=== PATIENT | male | born 1990 | race Caucasian/White ===

== ENCOUNTER 2017-05-07 10:33 | Observation (INO) | payer MEDICAID, OTHER ==
[2017-05-07] MEDS ORDERED: NALOXONE 0.4 MG/ML 1 ML VIAL IV PRN (13:34)
[2017-05-07] MEDS ORDERED: TEMAZEPAM 15 MG CAP PO PRN (13:35)
[2017-05-07] MEDS ORDERED: ALPRAZolam 0.25 MG TAB PO PRN (13:35)
[2017-05-07] MEDS ORDERED: HYDROmorphone 1 MG/ML 1 ML SYRINGE IVP PRN (13:35)
[2017-05-07] MEDS ORDERED: PANTOPRAZOLE 40 MG/10 ML VIAL IV SCH (13:45)
[2017-05-07 14:21] LABS: Basophils % (A) 0 %; CH 30.7; Eosinophils # (A) 0.1 k/uL (0-0.7); Eosinophils % (A) 1 %; HCT 44.3 % (39.0-53.0); HDW 2.13; HGB 14.3 gm/dL (13.0-17.5); Luc # (Auto) 0.08; Luc % (Auto) 1; Lymphocytes # (A) 0.8 k/uL (1.0-4.8); Lymphocytes % (A) 9 %; MCH 30.9 pg (25.0-35.0); MCHC 32.2 g/dL (31.0-37.0); MCV 96.1 fL (80.0-100.0); Mean Platelet Volume 6.8; Monocytes # (A) 0.3 k/uL (0-1.0); Monocytes % (A) 4 %; Neutrophils # (A) 7.2 k/uL (1.3-7.7); Neutrophils % (A) 86 %; RBC 4.61 m/uL (4.30-5.90); WBC 8.5 k/uL (3.8-10.6)
[2017-05-07 14:29] LABS: ALT 29 U/L (21-72); AST 25 U/L (17-59); Alkaline Phosphatase 70 U/L (38-126); Anion Gap 11 mmol/L; Blood Urea Nitrogen 6 mg/dL (9-20); Calcium 8.9 mg/dL (8.4-10.2); Carbon Dioxide 24 mmol/L (22-30); Chloride 105 mmol/L (98-107); Glucose 87 mg/dL (74-99); Non-African American GFR(MDRD) >60 (>60 ml/min/1.73 sqM); Potassium 4.1 mmol/L (3.5-5.1); Sodium 140 mmol/L (137-145); Total Bilirubin 1.3 mg/dL (0.2-1.3)
[2017-05-07] MEDS ORDERED: LORazepam 2 MG/ML INJ IV PRN (14:33)
[2017-05-07 14:38] LABS: Appearance,Urine Clear (Clear); Bilirubin,Urine Negative (Negative); Glucose,Urine (UA) Negative (Negative); Ketones,Urine 3+ (Negative); Leukocyte Esterase,Urine Negative (Negative); Nitrite,Urine Negative (Negative); Protein,Urine Negative (Negative); UA Billing (MACRO vs. MICRO) CHEM; Urobilinogen,Urine <2.0 mg/dL (<2.0)
[2017-05-07] MEDS: SODIUM CHLORIDE 0.9% 1,000 ML IV SCH (15:34)
--- NOTE | 2017-05-07 18:36 | P.GSCN ---
History of Present Illness Consult date: 05/07/17 Reason for Consult: Abdominal pain Requesting physician: Berto Blackburn History of present illness: The patient is a 27-year-old gentleman with history of irritable bowel syndrome who had a colonoscopy last 24 hours. He presented to the [place] [facility] where he had bilateral lower abdominal pain. CT of the abdomen and pelvis demonstrated no free air. There is no fluid along the spleen. He did have some fluid along the pelvis. Since transfer to [facility], his abdominal pain is resolved. General surgery has been counseled regarding his abnormal computed tomography scan findings. Review of Systems CONSTITUTIONAL: Denies any fever or chills. HEENT: Denies any trouble with vision, hearing or nosebleeds. No difficulty swallowing. LYMPHATIC: The patient denies any lumps and bumps around the neck. ENDOCRINE: Denies any thyroid disorders. Denies any blood sugar glucose intolerance. RESPIRATORY: Denies pneumonia. Has asthma. CARDIOVASCULAR: Denies any chest pain, palpitations, or recent heart attacks. GASTROINTESTINAL: Irritable bowel syndrome. History of gastroesophageal reflux disease. GENITOURINARY: Denies any blood in urine or increased urinary frequency. MUSCULOSKELETAL: Has back pain, stiffness, joint arthritis. NEUROLOGIC: Denies any numbness or tingling along the distal extremities. No seizure disorders or headaches. PSYCHIATRIC: Has depression. No suidical ideation. HEMATOLOGIC: Denies any abnormal bleeding or bruising. BREASTS: Denies any breast lumps, pain or nipple discharge. Past Medical History Past Medical History: Asthma, Musculoskeletal Disorder Additional Past Medical History / Comment(s): Hx. of asthma, Previous pelvic fracture with ongoing pelvic pain and low back pain that radiates down his right leg, heart murmur, IBS History of Any Multi-Drug Resistant Organisms: None Reported Additional Past Surgical History / Comment(s): Cosmetic surgery to remove a birthmark next to the right eye. Past Anesthesia/Blood Transfusion Reactions: No Reported Reaction Past Psychological History: Anxiety, Bipolar, Depression, PTSD Additional Psychological History / Comment(s): Dr. Otto Psychiatrist at [facility] Smoking Status: Never smoker Past Alcohol Use History: Occasional Additional Past Alcohol Use History / Comment(s): Pt. only 2 beers occasionally. Past Drug Use History: Marijuana Additional Drug Use History / Comment(s): Used MJ as a teenager. - Past Family History Mother Family Medical History: GI Bleed, Neurologic Disorder Additional Family Medical History / Comment(s): Heart valve replacement; MS, Acute GI bleed Brother(s) Family Medical History: Diabetes Mellitus, Musculoskeletal Disorder Additional Family Medical History / Comment(s): Scoliosis, Gout, DM onset at 22 y.o. Medications and Allergies Home Medications Medication Instructions Recorded Confirmed Type FLUoxetine HCL [PROzac] 20 mg PO DAILY 05/07/17 05/07/17 History Omeprazole 20 mg PO DAILY 05/07/17 05/07/17 History Allergies Allergy/AdvReac Type Severity Reaction Status Date / Time acetaminophen AdvReac Abdominal Verified 05/07/17 14:09 [From Darvocet-N] Pain propoxyphene AdvReac Abdominal Verified 05/07/17 14:09 [From Darvocet-N] Pain Surgical - Exam Vital Signs Temp Pulse Resp BP Pulse Ox 98.5 F 88 16 123/58 99 05/07/17 13:15 05/07/17 13:15 05/07/17 13:15 05/07/17 13:15 05/07/17 13:15 GENERAL: Well developed and in no acute distress. Pleasant. HEENT: No sclera icterus. Extraocular movements grossly intact. Moist buccal mucosa. Head is atraumatic, normocephalic. Hears conversational speech. No nasal drainage. NECK: Supple without lymphadenopathy. No JV distention. CHEST: Non-labored respirations and equal bilateral excursions. CARDIOVASCULAR: Regular rate and rhythm. Palpable 2+ radial pulses. ABDOMEN: Soft. Nondistended. No peritonitis. Minimal bilateral abdominal wall tenderness. MUSCULOSKELETAL: No clubbing, cyanosis or edema. NEUROLOGIC: No focal or lateralizing signs. PSYCH: Appropriate affect. Alert and oriented to person, place and time. SKIN: Good skin turgor. Well perfused. Results - Labs 05/07/17 14:13 05/07/17 14:13 Abnormal Lab Results - Last 24 Hours (Table) 05/07/17 05/07/17 05/07/17 Range/Units 14:13 14:13 14:30 Lymphocytes # 0.8 L (1.0-4.8) k/uL BUN 6 L (9-20) mg/dL Urine Ketones 3+ H (Negative) Diabetes panel 05/07/17 Range/Units 14:13 Sodium 140 (137-145) mmol/L Potassium 4.1 (3.5-5.1) mmol/L Chloride 105 (98-107) mmol/L Carbon Dioxide 24 (22-30) mmol/L BUN 6 L (9-20) mg/dL Creatinine 0.77 (0.66-1.25) mg/dL Glucose 87 (74-99) mg/dL Calcium 8.9 (8.4-10.2) mg/dL AST 25 (17-59) U/L ALT 29 (21-72) U/L Alkaline Phosphatase 70 (38-126) U/L Total Protein 7.0 (6.3-8.2) g/dL Albumin 4.2 (3.5-5.0) g/dL Calcium panel 05/07/17 Range/Units 14:13 Calcium 8.9 (8.4-10.2) mg/dL Albumin 4.2 (3.5-5.0) g/dL Pituitary panel 05/07/17 Range/Units 14:13 Sodium 140 (137-145) mmol/L Potassium 4.1 (3.5-5.1) mmol/L Chloride 105 (98-107) mmol/L Carbon Dioxide 24 (22-30) mmol/L BUN 6 L (9-20) mg/dL Creatinine 0.77 (0.66-1.25) mg/dL Glucose 87 (74-99) mg/dL Calcium 8.9 (8.4-10.2) mg/dL Adrenal panel 05/07/17 Range/Units 14:13 Sodium 140 (137-145) mmol/L Potassium 4.1 (3.5-5.1) mmol/L Chloride 105 (98-107) mmol/L Carbon Dioxide 24 (22-30) mmol/L BUN 6 L (9-20) mg/dL Creatinine 0.77 (0.66-1.25) mg/dL Glucose 87 (74-99) mg/dL Calcium 8.9 (8.4-10.2) mg/dL Total Bilirubin 1.3 (0.2-1.3) mg/dL AST 25 (17-59) U/L ALT 29 (21-72) U/L Alkaline Phosphatase 70 (38-126) U/L Total Protein 7.0 (6.3-8.2) g/dL Albumin 4.2 (3.5-5.0) g/dL - Imaging CT scan - abdomen: report reviewed, image reviewed CT scan - pelvis: report reviewed (No evidence of free air. No evidence of free fluid along the spleen or liver. Fluid in the pelvis likely from gastroenteritis.), image reviewed Assessment and Plan (1) Abnormal CT of the abdomen Status: Acute (2) Irritable bowel Status: Acute (3) Lower abdominal pain following cholangiogram Status: Acute (4) Lower abdominal pain Status: Acute Plan: 1. At the time of his evaluation, his abdominal pain had markedly improved. 2. Recommend start of regular diet. 3. Computed tomography scan demonstrates no free air or perisplenic fluid. No acute or surgical abdomen. 4. Fluid in the pelvis likely secondary to third spacing from bowel prep. 5. Recommend diet with discharge home. 6. Follow-up as needed.
[2017-05-07] MEDS: HEPARIN SODIUM,PORCINE 5,000 UNIT/ML 1 ML VIAL SQ SCH (20:57)
--- NOTE | 2017-05-07 22:29 | HP ---
HISTORY AND PHYSICAL DATE OF SERVICE: 05/07/2017 CHIEF COMPLAINT: Abdominal pain. HISTORY OF PRESENT ILLNESS: This 27-year-old gentleman with a past history of asthma, musculoskeletal disorder, history of irritable bowel syndrome, anxiety, bipolar depression, PTSD being followed by Dr. Crane in the outpatient setting has had EGD and colonoscopy by Dr. Isaac yesterday. The full report is not available. Apparently EGD and colonoscopy did not show any acute findings. Patient went home. Subsequently patient had severe pain 9/10 intensity mainly in the left lower quadrant which is radiating to the both sides of the stomach and the patient again went to [facility] in [place] and CT scan was done. CT scan of the abdomen showed suspicious fluid and thickening of the sigmoid colon, and the patient was transferred to [facility] as a direct admission for further evaluation and treatment. There is no history of fever, rigors. No history of headache, loss of conscious or seizures. PAST MEDICAL HISTORY: History of asthma, musculoskeletal disorders, history of anxiety, bipolar depression, PTSD. MEDICATIONS: Prior to admission include: 1. Omeprazole 20 mg daily. 2. And Prozac 20 mg daily. ALLERGIES: DARVOCET-N 100. FAMILY HISTORY: History of GI bleed. History of cardiac valve replacement. MS and acute gastrointestinal bleed. SOCIAL HISTORY: No history of smoking, no history alcohol intake. REVIEW OF SYSTEMS: ENT: No diminished hearing or vision. CARDIOVASCULAR: No angina. RESPIRATORY: As mentioned earlier. : No dysuria. Nervous system: No numbness, weakness. Allergy/Immunology: No asthma or hayfever. Musculoskeletal: As mentioned earlier. Hematology/Oncology: No history of anemia. Endocrine: No history of diabetes or hypothyroidism. Constitutional: As mentioned earlier. Dermatology: Negative. Rheumatology: Negative. Psychiatric: As mentioned earlier. PHYSICAL EXAM: Patient is alert, oriented x3. Pulse 88, blood pressure 100/58, respiration 18, temperature 98.4, pulse ox 99% on room air. HEENT: Conjunctivae normal. Oral mucosa moist. Neck is no jugular venous distention. No lymph node enlargement. No thyroid enlargement. Cardiovascular system: S1, S2. No S3, no S4. RESPIRATORY: Breath sounds diminished in the bases. No rhonchi. No crackles. ABDOMEN: Soft. No guarding. No rigidity. No mass palpable. No tenderness. Legs bowel sounds present. Abdomen scaphoid. Legs: No edema and no swelling. NERVOUS SYSTEM: Higher functions as mentioned earlier. Moves all four limbs. No focal deficits. Lymphatics: No lymph nodes palpable in the neck, axillae or groin. SKIN: No ulcer, rash, or bleeding. LABORATORY DATA: CBC within normal limits. BUN 6 and the urine ketones 3+. ASSESSMENT: 1. Acute abdominal pain. Post colonoscopy and EGD rule out perforation. 2. Abnormal CT scan from elsewhere. 3. History of irritable bowel syndrome. 4. History of asthma. 5. History of degenerative joint disease. 6. History of anxiety, bipolar depression, PTSD. 7. History of THC. RECOMMENDATIONS AND DISCUSSION: This 27-year-old gentleman who presented with multiple complex medical issues, we will monitor the patient closely. Continue the current management and continue symptomatic treatment. Otherwise I would recommend a surgical and as well as GI consultation, resume the home medications. Prognosis guarded because of multiple complex medical issues. Further recommendations to follow. We will initiate home medications also once the patient is stable. DVT prophylaxis. Prognosis guarded because of multiple complex medical issues. Discussed with the patient, understands and agrees. MMODL / IJN: [id number] /
[2017-05-08] MEDS: SODIUM CHLORIDE 0.9% 1,000 ML IV SCH (04:29)
[2017-05-08 07:30] VITALS: BP 116/74; PULSE 70; RESP 18; TEMP 97.3
[2017-05-08] MEDS ORDERED: PANTOPRAZOLE 40 MG TABLET PO SCH (07:30)
[2017-05-08] MEDS ORDERED: FLUoxetine HCL 20 MG CAP PO SCH (09:00)
[2017-05-08] MEDS: HEPARIN SODIUM,PORCINE 5,000 UNIT/ML 1 ML VIAL SQ SCH (09:38)
--- NOTE | 2017-05-08 10:45 | CONS ---
CONSULTATION REASON FOR CONSULTATION: Abdominal pain post colonoscopy. HISTORY OF PRESENT ILLNESS: The patient is a 27-year-old pleasant white male with history of irritable bowel syndrome, anxiety and depression, was seen by Dr. Isaac on Tuesday and underwent an outpatient EGD, colonoscopy in [facility]. According to the patient, he had some gastritis noted, but the colonoscopy was normal and he underwent some gastric biopsies. A few hours after the colonoscopy he started having some periumbilical abdominal pain and then progressively got worse and pain radiated to the lower abdomen, mostly in the left lower quadrant area associated with some nausea but no emesis. He got very concerned, went to the emergency room at [facility] and had a CT of the abdomen and pelvis done that showed some suspicious free fluid in the pelvic area with some thickening of the sigmoid colon and hence he was transferred to [facility] for further management. He was evaluated by Dr. Cleaning also. This morning he states that the pain has completely resolved. Some vague discomfort in the left lower quadrant area. No nausea, vomiting. No diarrhea. Feels somewhat constipated. He no fever, chills, or night sweats. PAST MEDICAL HISTORY: Significant for asthma, anxiety, bipolar, depression, PTSD. MEDICATIONS: Prior to admission: 1. Omeprazole. 2. Prozac. 3. Darvocet. SOCIAL HISTORY: No smoking. No alcohol use. FAMILY HISTORY: Unremarkable. Mother has cardiac valve replacement. REVIEW OF SYSTEMS: CARDIOPULMONARY: No chest pain or shortness of breath. GENITOURINARY: No dysuria, hematuria. MUSCULOSKELETAL: Unremarkable. SKIN: Unremarkable. ENDOCRINE: Unremarkable. PSYCHIATRIC: Unremarkable. ENT/VISION: Unremarkable. CONSTITUTIONAL: No recent weight loss. No fever, chills, night sweats. PHYSICAL EXAMINATION: Blood pressure 113/58, pulse 80, temperature 98.3. HEENT examination unremarkable. Conjunctivae pink. Sclerae anicteric. Oral cavity no lesions. NECK: No JVD or lymph node enlargement. Chest was clear to auscultation. Heart: Regular rate and rhythm. ABDOMEN: Soft, was nontender. There was some mild discomfort in the left lower quadrant area, but the abdomen was very benign. Bowel sounds are positive. EXTREMITIES: No pedal edema. SKIN: No rashes. NEUROLOGIC: Alert and oriented x3. No focal deficits. LABS: From yesterday, WBC 8.5, hemoglobin 14.3, platelets normal. Basic metabolic panel is within normal limits. IMPRESSION: This is a patient who presents with periumbilical and left lower quadrant abdominal pain post colonoscopy performed by Dr. Isaac 2 days ago at [facility]. The results of the colonoscopy are unavailable, but according to the patient, it was within normal limits other than mild gastritis. He also after the colonoscopy developed severe lower abdominal discomfort and went to the ER at [facility]. CT of the abdomen showed small amount of free fluid in the pelvis and some thickening of the sigmoid colon. Presently he has no abdominal symptoms. No peritoneal signs. No leukocytosis currently and his symptoms have completely resolved. RECOMMENDATIONS: 1. Advance diet as tolerated. 2. He can be discharged home today with outpatient follow up with Dr. Isaac in couple of weeks. Thank you for this consultation. ALMA / RBOERTN: [id number] /
--- NOTE | 2017-05-08 17:55 | P.DS ---
Providers Date of admission: 05/07/17 12:54 Attending physician: Elian Anna Consults: 05/07/17 14:35 Consult Physician Routine Consulting Provider: Paradise Cleaning Consult Reason/Comments: possible fluid collection colon major Do you want consulting provider notified?: Yes 05/07/17 14:37 Consult Physician Routine Consulting Provider: Eileen Jacobs Consult Reason/Comments: colonoscopy yesterday with increased pain after at home Do you want consulting provider notified?: Yes Primary care physician: Elizabeth Hospital Course: This 27-year-old gentleman being followed by Dr. Tracey the outpatient setting had a colonoscopy by Dr. Lam recently at [place]. The patient was admitted referred yesterday with severe abdominal pain starting from the left lower quadrant. A CAT scan done elsewhere showed some thickening of the sigmoid colon with some fluid. The patient was evaluated in [facility]. Patient was seen by Dr. Silva and as well as Ross and the patient is cleared for discharge. The patient had significant symptomatically improved significantly. The labs also within normals. On exam vitals stable. Cardio S1 and S2 normal. Chest clear prostration. Abdomen soft nontender no mass palpable scaphoid. Bowel sounds present. No ascites. The patient be seen by Dr. Lam in the outpatient setting as well as surgery as well as primary physician Dr. Crane. The patient understands and agrees. Final diagnosis 1. Acute abdominal pain for status post colonoscopy and EGD of undetermined etiology no evidence of acute abdomen. 2. Abdominal CAT scan from elsewhere are stable per surgery and gastroneurology. 3. History of irritable bowel syndrome. 4. History of asthma 5. History of DJD. 6. History of for anxiety bipolar depression PTSD 7. History of THC Plan - Discharge Summary New Discharge Prescriptions: Continue FLUoxetine HCL [PROzac] 20 mg PO DAILY Omeprazole 20 mg PO DAILY Discharge Medication List FLUoxetine HCL [PROzac] 20 mg PO DAILY 05/07/17 [History] Omeprazole 20 mg PO DAILY 05/07/17 [History] Follow up Appointment(s)/Referral(s): Gerard Isaac MD [STAFF PHYSICIAN] - 2 Weeks Alf Crane MD [Primary Care Provider] - 3 Days Paradise lCeaning MD [STAFF PHYSICIAN] - As Needed Ambulatory/Diagnostic Orders: Complete Blood Count w/diff [LAB.AMB] Location: Determined By Patient Patient Instructions/Handouts: Gastritis (DC) Activity/Diet/Wound Care/Special Instructions: diet soft bland per surgery act limited till f/u Discharge/Stand Alone Forms: Work/Release Restrictions Form, Work/School Release / Restrict Discharge Disposition: HOME SELF-CARE
== END 2017-05-08 14:00 | disposition home or self-care (01) ==
LOC: INTOOBSV 12:54 → 4MS4W 12:54
PROVIDERS: ADMIT Internal Medicine; ATTEND Internal Medicine
DX: R10.32 Left lower quadrant pain (principal); R10.31 Right lower quadrant pain; K58.9 Irritable bowel syndrome, unspecified; F31.9 Bipolar disorder, unspecified; F43.10 Post-traumatic stress disorder, unspecified; M19.90 Unspecified osteoarthritis, unspecified site; K29.70 Gastritis, unspecified, without bleeding; J45.909 Unspecified asthma, uncomplicated; Z79.899 Other long term (current) drug therapy; Z83.3 Family history of diabetes mellitus; Z87.19 Personal history of other diseases of the digestive system; Z87.39 Personal history of other diseases of the musculoskeletal system and connective tissue; Z88.8 Allergy status to other drugs, medicaments and biological substances; Z98.890 Other specified postprocedural states
CPT/HCPCS: 96372 ×2; 96374; 96375; 80053; 85025; 81003; G0379; G0378 ×2; J2060; J1644 ×2; C9113

== ENCOUNTER 2024-12-01 17:18 | Emergency (ER) | payer OTHER ==
--- NOTE | 2024-12-01 17:40 | ED ---
General Adult HPI - General Chief complaint: Seizure Stated complaint: Seizure Time Seen by Provider: 12/01/24 17:21 Source: patient, EMS Mode of arrival: EMS - History of Present Illness Initial comments: This patient is a 34-year-old man brought by ambulance to have evaluation after suspected seizure. The patient himself states that he was a daily drinker until 3 days ago when he stopped drinking. Since that time he has been feeling anxious and shaky. Today he was with family and he states he felt funny. He states that he saw a spot of rainbow flashing light in his right visual field. The patient then remembers waking up with the ambulance. He now has right-sided headache and right elbow pain. He indicates posterior aspect of the elbow. He denies other complaints. -: minutes(s) Location: head, right, upper extremity Quality: aching Consistency: constant Improves with: none Worsens with: none Treatments Prior to Arrival: none - Related Data Home Medications Medication Instructions Recorded Confirmed FLUoxetine HCL [PROzac] 20 mg PO DAILY 05/07/17 05/07/17 Omeprazole 20 mg PO DAILY 05/07/17 05/07/17 Allergies Allergy/AdvReac Type Severity Reaction Status Date / Time acetaminophen AdvReac Abdominal Verified 12/01/24 17:27 [From Darvocet-N] Pain propoxyphene AdvReac Abdominal Verified 12/01/24 17:27 [From Darvocet-N] Pain Review of Systems ROS Statement: Those systems with pertinent positive or pertinent negative responses have been documented in the HPI. ROS Other: All systems not noted in ROS Statement are negative. Constitutional: Denies: fever, chills, weakness Eyes: Reports: vision change. Denies: eye pain ENT: Denies: ear pain, hearing loss, congestion Respiratory: Denies: cough, dyspnea Cardiovascular: Denies: chest pain, palpitations, edema, syncope Gastrointestinal: Denies: abdominal pain, nausea, vomiting Genitourinary: Denies: dysuria, hematuria Musculoskeletal: Denies: back pain Skin: Denies: rash Neurological: Denies: headache, weakness, numbness, confusion Psychiatric: Reports: anxiety Past Medical History Past Medical History: Asthma, Musculoskeletal Disorder Additional Past Medical History / Comment(s): Hx. of asthma, Previous pelvic fracture with ongoing pelvic pain and low back pain that radiates down his right leg, heart murmur, IBS History of Any Multi-Drug Resistant Organisms: None Reported Additional Past Surgical History / Comment(s): Cosmetic surgery to remove a birthmark next to the right eye. Past Anesthesia/Blood Transfusion Reactions: No Reported Reaction Past Psychological History: Anxiety, Bipolar, Depression, PTSD Smoking Status: Vaper Past Alcohol Use History: Daily Past Drug Use History: Marijuana - Past Family History Mother Family Medical History: GI Bleed, Neurologic Disorder Additional Family Medical History / Comment(s): Heart valve replacement; MS, Acute GI bleed Brother(s) Family Medical History: Diabetes Mellitus, Musculoskeletal Disorder Additional Family Medical History / Comment(s): Scoliosis, Gout, DM onset at 22 y.o. General Exam General appearance: alert, in no apparent distress Head exam: Present: atraumatic, normocephalic Eye exam: Present: normal appearance. Absent: scleral icterus, conjunctival injection ENT exam: Present: normal oropharynx Neck exam: Present: normal inspection, full ROM Respiratory exam: Present: normal lung sounds bilaterally. Absent: respiratory distress, wheezes, rales, rhonchi, stridor, accessory muscle use Cardiovascular Exam: Present: regular rate, normal rhythm, normal heart sounds. Absent: systolic murmur, diastolic murmur, rubs, gallop GI/Abdominal exam: Present: soft. Absent: distended, tenderness, guarding, rebound, rigid, mass Extremities exam: Present: normal inspection, normal capillary refill. Absent: pedal edema, calf tenderness Back exam: Present: normal inspection. Absent: CVA tenderness (R), CVA tenderness (L) Neurological exam: Present: alert, oriented X3, CN II-XII intact, other (Tremor). Absent: motor sensory deficit Skin exam: Present: warm, dry, intact, normal color. Absent: rash Course Vital Signs 12/01/24 12/01/24 17:21 18:39 Temperature 98.1 F Pulse Rate 103 H 90 Respiratory 20 20 Rate Blood Pressure 143/98 135/86 O2 Sat by Pulse 97 99 Oximetry EKG Findings - EKG Results: EKG: interpreted by ERMD, sinus rhythm (Rate 98 bpm) - Blocks, [place], Hypertrophy, ST Abn: AV and intraventricular conduction: right bundle branch block (fixed/intermittent, complete/incomplete) (Complete) Chamber hypertrophy or enlargement: only voltage criteria for left ventricular hypertrophy Medical Decision Making - Medical Decision Making Patient is 34-year-old man here for evaluation after having had what sounds like generalized tonic-clonic seizure. Patient's family subsequently arrived and states that he had been standing, lost consciousness and fell to the ground striking his head and elbow. They noted shaking movements which they felt lasted maybe as long as 10 minutes. They had called the ambulance but the activity stopped prior to ambulance arrival. The patient's workup here does reveal right temporal area of hemorrhage, 2.6 x 3 cm. I discussed the finding with the patient and stated that he would need transfer to facility with neurosurgery availability and he request the closest, agreeing to transfer to [facility]. I discussed case there with Dr. Hdez who accepts transfer. - Lab Data Result diagrams: 12/01/24 17:42 12/01/24 17:42 Lab Results 12/01/24 12/01/24 12/01/24 Range/Units 17:42 17:42 17:42 WBC 7.28 (4.50-10.00) 10*3/uL RBC 4.42 (4.40-5.60) 10*6/uL Hgb 15.1 (13.0-17.0) g/dL Hct 43.3 (39.6-50.0) % MCV 98.0 H (80.0-97.0) fL MCH 34.2 H (27.0-32.0) pg MCHC 34.9 (32.0-37.0) g/dL Plt Count 156 (140-440) 10*3/uL MPV 10.6 (9.5-12.2) fL Immature Gran % (Auto) 0.7 % Neutrophils % 51.4 % Lymphocytes % 36.4 % Monocytes % 10.0 % Eosinophils % 1.0 % Basophils % 0.5 % Immature Gran # 0.05 H (0.00-0.04) 10*3/uL Neutrophils # 3.74 (1.80-7.70) 10*3/uL Lymphocytes # 2.65 (0.90-5.00) 10*3/uL Monocytes # 0.73 (0.20-1.00) 10*3/uL Eosinophils # 0.07 (0.04-0.35) 10*3/uL Basophils # 0.04 (0.00-0.10) 10*3/uL Sodium 129 L (137-145) mmol/L Potassium 3.6 (3.5-5.1) mmol/L Chloride 92 L (98-107) mmol/L Carbon Dioxide 13 L (22-30) mmol/L Anion Gap 24 mmol/L BUN 11 (9-20) mg/dL Creatinine 0.84 (0.66-1.25) mg/dL Est GFR (CKD-EPI)AfAm >90 (>60 ml/min/1.73 sqM) Est GFR (CKD-EPI)NonAf >90 (>60 ml/min/1.73 sqM) Glucose 141 H (74-99) mg/dL Plasma Lactic Acid Gamaliel 13.5 H* (0.7-2.0) mmol/L Calcium 9.8 (8.4-10.2) mg/dL Magnesium 2.3 (1.6-2.3) mg/dL Total Bilirubin 1.4 H (0.2-1.3) mg/dL AST 244 H (17-59) U/L ALT 179 H (4-49) U/L Alkaline Phosphatase 60 (38-126) U/L Troponin I (0.000-0.034) ng/mL Total Protein 8.3 H (6.3-8.2) g/dL Albumin 5.3 H (3.5-5.0) g/dL Serum Alcohol mg/dL 12/01/24 12/01/24 Range/Units 17:42 18:39 WBC (4.50-10.00) 10*3/uL RBC (4.40-5.60) 10*6/uL Hgb (13.0-17.0) g/dL Hct (39.6-50.0) % MCV (80.0-97.0) fL MCH (27.0-32.0) pg MCHC (32.0-37.0) g/dL Plt Count (140-440) 10*3/uL MPV (9.5-12.2) fL Immature Gran % (Auto) % Neutrophils % % Lymphocytes % % Monocytes % % Eosinophils % % Basophils % % Immature Gran # (0.00-0.04) 10*3/uL Neutrophils # (1.80-7.70) 10*3/uL Lymphocytes # (0.90-5.00) 10*3/uL Monocytes # (0.20-1.00) 10*3/uL Eosinophils # (0.04-0.35) 10*3/uL Basophils # (0.00-0.10) 10*3/uL Sodium (137-145) mmol/L Potassium (3.5-5.1) mmol/L Chloride (98-107) mmol/L Carbon Dioxide (22-30) mmol/L Anion Gap mmol/L BUN (9-20) mg/dL Creatinine (0.66-1.25) mg/dL Est GFR (CKD-EPI)AfAm (>60 ml/min/1.73 sqM) Est GFR (CKD-EPI)NonAf (>60 ml/min/1.73 sqM) Glucose (74-99) mg/dL Plasma Lactic Acid Gamaliel (0.7-2.0) mmol/L Calcium (8.4-10.2) mg/dL Magnesium (1.6-2.3) mg/dL Total Bilirubin (0.2-1.3) mg/dL AST (17-59) U/L ALT (4-49) U/L Alkaline Phosphatase (38-126) U/L Troponin I 0.017 (0.000-0.034) ng/mL Total Protein (6.3-8.2) g/dL Albumin (3.5-5.0) g/dL Serum Alcohol <10 mg/dL Disposition Clinical Impression: New onset seizure, Intracerebral hemorrhage Disposition: OTHER INSTITUTION NOT DEFINED Condition: Serious Instructions (If sedation given, give patient instructions): Seizure/Epilepsy Discharge Instructions & Follow-Up Is patient prescribed a controlled substance at d/c from ED?: No Referrals: None,Stated [Primary Care Provider] - 1-2 days
[2024-12-01 17:45] LABS: Basophils # (A) 0.04 10*3/uL (0.00-0.10); Basophils % (A) 0.5 %; Eosinophils # (A) 0.07 10*3/uL (0.04-0.35); HCT 43.3 % (39.6-50.0); HGB 15.1 g/dL (13.0-17.0); Lymphocytes # (A) 2.65 10*3/uL (0.90-5.00); Lymphocytes % (A) 36.4 %; MCH 34.2 pg (27.0-32.0); MCHC 34.9 g/dL (32.0-37.0); Mean Platelet Volume 10.6 fL (9.5-12.2); Monocytes # (A) 0.73 10*3/uL (0.20-1.00); Neutrophils # (A) 3.74 10*3/uL (1.80-7.70); Neutrophils % (A) 51.4 %; Platelet Count 156 10*3/uL (140-440); RBC 4.42 10*6/uL (4.40-5.60); RDW 11.5 % (11.5-14.5); WBC 7.28 10*3/uL (4.50-10.00)
[2024-12-01] MEDS: SODIUM CHLORIDE 0.9% 1,000 ML IV ONE ×2 (17:50→18:38)
[2024-12-01] MEDS: LORazepam 2 MG/ML INJ IV STA ×3 (17:51→19:31)
[2024-12-01] MEDS: IBUPROFEN 600 MG TAB PO STA (17:51)
[2024-12-01 17:57] LABS: African American GFR (CKD) >90 (>60 ml/min/1.73 sqM); Albumin 5.3 g/dL (3.5-5.0); Anion Gap 24 mmol/L; Blood Urea Nitrogen 11 mg/dL (9-20); Calcium 9.8 mg/dL (8.4-10.2); Carbon Dioxide 13 mmol/L (22-30); Chloride 92 mmol/L (98-107); Glucose 141 mg/dL (74-99); Non-African American GFR(CKD) >90 (>60 ml/min/1.73 sqM); Sodium 129 mmol/L (137-145); Total Bilirubin 1.4 mg/dL (0.2-1.3); Total Protein 8.3 g/dL (6.3-8.2)
[2024-12-01 18:09] LABS: Potassium 3.6 mmol/L (3.5-5.1)
[2024-12-01 18:10] LABS: ALT 179 U/L (4-49); AST 244 U/L (17-59); Alkaline Phosphatase 60 U/L (38-126); Magnesium 2.3 mg/dL (1.6-2.3)
--- NOTE | 2024-12-01 18:33 | CT ---
EXAMINATION TYPE: CT brain wo con DATE OF EXAM: 12/01/2024 6:17 PM COMPARISON: Prior CT head study 04/15/2014.. CLINICAL INDICATION: Male, 34 years old with history of seizure, SEIZURE TECHNIQUE: Brain: Axial CT images of the brain were obtained with coronal and sagittal reformats created and rev iewed. Contrast used: None. Oral contrast used: None. CT DLP: 1141.3 mGycm, Automated exposure control for dose reduction was used. FINDINGS: Brain: Extra-axial spaces: No abnormal extra-axial fluid collections. Ventricular system: Anatomic variant cavum septum pellucid and with cavum vergae. Cerebral parenchyma: Heterogeneous possibly hemorrhagic mass lesion in the right middle cranial fossa /right temporal lobe measures 2.6 x 1.4 x 3.0 cm (series 55 image 21). This lesion demonstrates high density content as well as circumscribed low-density internal region. The harris-white junction is well differentiated. Cerebellum: Unremarkable. Mass effect: No evidence of midline shift. Intracranial vasculature: unremarkable Soft tissues: Normal. Calvarium/osseous structures: No depressed skull fracture. Paranasal sinuses and mastoid air cells: Mild scattered paranasal sinus disease. Visualized orbits: Orbital contents are intact. IMPRESSION: Heterogeneous possibly hemorrhagic mass lesion in the right middle cranial fossa/right temporal lobe measuring 2.6 x 1.4 x 3.0 cm. Recommend brain MRI with IV contrast for further evaluation. [facility], , 12/01/2024 6:30 PM
--- NOTE | 2024-12-01 18:35 | XR ---
EXAMINATION TYPE: XR elbow complete RT DATE OF EXAM: 12/01/2024 6:19 PM COMPARISON: None. CLINICAL INDICATION: Male, 34 years old with history of fall inj; PHH, pain TECHNIQUE: XR elbow complete RT; elbow was examined in AP, lateral, and oblique projections. FINDINGS: No evidence of any acute osseous pathology, joint dislocation, or soft tissue swelling is n oted. No evidence of joint effusion is present. IMPRESSION: No evidence of acute fracture. [facility], , 12/01/2024 6:32 PM
[2024-12-01 19:16] VITALS: BP 121/88; PULSE 57; RESP 16; TEMP 97.9
[2024-12-01] MEDS: MORPHINE SULFATE 4 MG/ML SYRINGE IV STA (19:24)
== END 2024-12-01 19:36 | disposition other institution (70) ==
LOC: EC 17:18
DX: R56.9 Unspecified convulsions (principal); I62.9 Nontraumatic intracranial hemorrhage, unspecified; F17.290 Nicotine dependence, other tobacco product, uncomplicated; Z88.5 Allergy status to narcotic agent; Z88.6 Allergy status to analgesic agent
CPT/HCPCS: 36415; 93005; 80053; 83605; 83735; 84484; 85025; 73080; 70450; 99285; 96374; 96375; 96376; 96361; G0480; J2060; J2270; 80320